=== PATIENT | female | born 1945 | race American Indian/Alaskan Native ===

== ENCOUNTER 2021-10-17 14:58 | Inpatient (IN) | payer MEDICARE ==
[2021-10-17] MEDS ORDERED: IPRATROPIUM 0.02% NEBU 2.5 ML IH ONE ×2 (15:51→17:30)
[2021-10-17] MEDS ORDERED: ALBUTEROL 2.5 MG/3 ML NEBU IH ONE ×2 (15:51→17:29)
--- NOTE | 2021-10-17 15:59 | Emergency Department Report ---
ED Shortness of Breath HPI - General Chief Complaint: Dyspnea/Respdistress Stated Complaint: DIFFICULTY BREATHING Time Seen by Provider: 10/17/21 15:44 Source: patient, EMS Mode of arrival: Stretcher Limitations: No Limitations - History of Present Illness Initial Comments: 76-year-old female with a history of end-stage renal disease currently on dialys is and chronic smoker with diagnosis of COPD who now presented with shortness of breath that been going on for couple of days with productive cough. Patient denies any fever or chills. No other modifying or associated factors reported. MD Complaint: shortness of breath - Related Data Allergies Allergy/AdvReac Type Severity Reaction Status Date / Time codeine AdvReac Unknown Verified 10/17/21 15:05 Penicillins AdvReac Unknown Verified 10/17/21 15:05 ED Review of Systems ROS: Stated complaint: DIFFICULTY BREATHING Other details as noted in HPI Comment: All other systems reviewed and negative Respiratory: cough, shortness of breath, SOB with exertion, wheezing ED Past Medical Hx - Past Medical History Previous Medical History?: No - Surgical History Past Surgical History?: No - Social History Smoking Status: Unknown if ever smoked Substance Use Type: None ED Physical Exam - General Limitations: No Limitations General appearance: alert, in distress (Due to shortness of breath) - Head Head exam: Present: normal inspection - Eye Eye exam: Present: normal appearance Pupils: Present: normal accommodation - ENT ENT exam: Present: normal exam, normal orophraynx, mucous membranes moist - Neck Neck exam: Present: normal inspection. Absent: tenderness - Respiratory Respiratory exam: Present: normal lung sounds bilaterally, respiratory distress, wheezes, accessory muscle use - Cardiovascular Cardiovascular Exam: Present: regular rate, normal rhythm, normal heart sounds - GI/Abdominal GI/Abdominal exam: Present: soft, distended, normal bowel sounds. Absent: te nderness - Extremities Exam Extremities exam: Present: normal inspection, normal capillary refill. Absent: tenderness, pedal edema, joint swelling - Back Exam Back exam: Absent: tenderness - Neurological Exam Neurological exam: Present: alert, oriented X3 - Psychiatric Psychiatric exam: Present: normal affect, normal mood ED Course Vital Signs 10/17/21 10/17/21 10/17/21 15:04 15:29 16:08 Pulse Rate 118 H Pulse Rate [ Anterior Bilateral Throughout] Respiratory Rate [Anterior Bilateral Throughout] Blood Pressure 202/160 [Left] O2 Sat by Pulse 96 100 94 Oximetry 10/17/21 16:14 Pulse Rate Pulse Rate [ 97 H Anterior Bilateral Throughout] Respiratory 20 Rate [Anterior Bilateral Throughout] Blood Pressure [Left] O2 Sat by Pulse Oximetry - Reevaluation(s) Reevaluation #1: 10/17/21 15:57 Here with shortness of breath with history of COPD currently smoking-- differential diagnosis could be but not limited to acute COPD exacerbation, myocardial infarction, pulmonary embolism, pneumonia, and any other systemic infection. So in order to rule out the above-mentioned we will go ahead and order routine dyspnea work-up that includes EKG, troponin, BNP, CBC, CMP, and urinalysis for any infectious process of electrolyte abnormality as a cause. We will also get a chest x-ray to rule out any pneumonia. In the meantime we will go ahead and give additional breathing DuoNeb treatment considering extensive wheezing and plus Levaquin for the likely COPD exacerbation. Reevaluation #2: 10/17/21 17:19 Noted with elevated troponin that is likely as result of chronic kidney injury with BUN at 80 and creatinine at 10.3--this patient probably needs dialysis. She gets dialyzed Monday and Monday so she is having one coming out tomorrow. Will consult with Nephrology for admission and dialysis. 10/17/21 17:30 Dr Alfaro consulted who accept pt for further evaluation and treatment - Consultations Consultation #1: 10/17/21 17:23 Dr Queen consulted who agreed to have patient admitted to the hospitalist and for likely dialysis in the AM-- ED Medical Decision Making - Lab Data Result diagrams: 10/17/21 15:57 10/17/21 15:57 - EKG Data -: EKG Interpreted by Me EKG shows normal: sinus rhythm Rate: normal - EKG Data 10/17/21 17:06 Noted with normal sinus rhythm at a rate of 95 bpm with suspected prolonged QT interval and this abnormal ECG Critical care attestation.: If time is entered above; I have spent that time in minutes in the direct care of this critically ill patient, excluding procedure time. ED Disposition Clinical Impression: COPD with acute exacerbation, ESRD (end stage renal disease) on dialysis Disposition: ADMITTED INPATIENT Is pt being admited?: Yes Does the pt Need Aspirin: No Condition: Stable Instructions: Chronic Obstructive Pulmonary Disease (ED)
[2021-10-17 16:14] LABS: Basophils % (Auto) 0.4 % (0.0-1.8); Eosinophils # (Auto) 0.1 K/mm3 (0.0-0.4); Eosinophils % (Auto) 1.5 % (0.0-4.3); Hematocrit 25.1 % (30.3-42.9); Hemoglobin 7.8 gm/dl (10.1-14.3); Lymphocytes # (Auto) 0.3 K/mm3 (1.2-5.4); Lymphocytes % (Auto) 4.7 % (13.4-35.0); Mean Corpuscular HGB Conc 31 % (30-34); Mean Corpuscular Volume 73 fl (79-97); Monocytes # (Auto) 0.4 K/mm3 (0.0-0.8); Monocytes % (Auto) 5.6 % (0.0-7.3); Platelet Count 137 K/mm3 (140-440); Red Blood Count 3.42 M/mm3 (3.65-5.03); Red Cell Distribution Width 19.6 % (13.2-15.2)
[2021-10-17 16:25] LABS: INR 1.1 (0.87-1.13)
[2021-10-17 16:26] LABS: Partial Thromboplastin Time 28.4 Sec. (24.2-36.6)
[2021-10-17 16:31] LABS: Albumin 3.8 g/dL (3.9-5); Calcium 9.4 mg/dL (8.4-10.2)
[2021-10-17 16:57] LABS: Chol/HDL Ratio 2.88 %
[2021-10-17 17:02] LABS: ABG Base Excess -2.3 mmol/L (-2.0-3.0); ABG HCO3 21.6 mmol/L (20.0-26.0); ABG Methemoglobin 0.5 % (0.0-1.5); ABG PCO2 32.8 mm Hg; ABG PH 7.436 pH Units (7.350-7.450); ABG PO2 78.3 mm Hg (80.0-90.0)
--- NOTE | 2021-10-17 17:55 | XRay Report ---
CHEST 1 VIEW INDICATION: sob. COMPARISON: None FINDINGS: SUPPORT DEVICES: None. HEART: Moderate cardiomegaly. LUNGS/PLEURA: Mild interstitial edema with small layering effusion on the right. A few tiny scattered pulmonary nodules are present. Correlate with any prior outside imaging and/or consider follow-up CT chest nonemergently. ADDITIONAL FINDINGS: None. IMPRESSION: 1. Lung findings as above. Signer Name: Josr Tamez MD Signed: 10/17/2021 5:51 PM Workstation Name: [id number]
[2021-10-17] MEDS ORDERED: ACETAMINOPHEN 325 MG TAB PO PRN (20:59)
[2021-10-17] MEDS ORDERED: METOCLOPRAMIDE 10 MG/2 ML INJ IV PRN ×2 (20:59→21:20)
[2021-10-17] MEDS ORDERED: MORPHINE 2 MG/1 ML INJ IV PRN (20:59)
[2021-10-17] MEDS ORDERED: oxyCODONE /ACETAMINOPHEN 5-325MG TAB PO PRN (20:59)
[2021-10-17] MEDS ORDERED: ONDANSETRON 4 MG/2 ML INJ IV PRN (20:59)
[2021-10-17] MEDS ORDERED: IPRATROPIUM/ALBUTEROL SULFATE 3 ML AMPUL.NEB IH PRN (21:13)
[2021-10-17] MEDS ORDERED: ALBUTEROL 2.5 MG/3 ML NEBU IH PRN (21:22)
--- NOTE | 2021-10-17 21:23 | History and Physical Report ---
History of Present Illness Date of examination: 10/17/21 Date of admission: 10/17/2021 Chief complaint: Increasing shortness of breath since a.m. History of present illness: 76-year-old female with a history of end-stage renal disease currently on dialysis and chronic smoker with diagnosis of COPD who now presented with shortness of breath that been going on for couple of days with productive cough. Patient denies any fever or chills. No other modifying or associated factors. Cough quality of mucoid sputum. No orthopnea. - Past Medical History end-stage renal disease on hemodialysis COPD Hypertension - Surgical History Vas-Cath - Social History Smokes about half a pack a day family history hypertension Review of Systems ROS: Stated complaint: DIFFICULTY BREATHING Other details as noted in HPI Comment: All other systems reviewed and negative Respiratory: cough, shortness of breath, SOB with exertion, wheezing Medications and Allergies Allergies Allergy/AdvReac Type Severity Reaction Status Date / Time codeine AdvReac Unknown Verified 10/17/21 15:05 Penicillins AdvReac Unknown Verified 10/17/21 15:05 Exam - Constitutional Vitals: Temp Pulse Resp BP Pulse Ox 100 H 16 152/86 100 10/17/21 18:55 10/17/21 18:55 10/17/21 18:55 10/17/21 18:55 General appearance: Present: mild distress, well-nourished - EENT Eyes: Present: PERRL ENT: hearing intact, clear oral mucosa - Neck Neck: Present: supple, normal ROM - Respiratory Respiratory effort: normal Respiratory: bilateral: diminished, rhonchi, wheezing - Cardiovascular Heart rate: 78 Rhythm: regular Heart Sounds: Present: S1 & S2. Absent: rub, click - Extremities Extremities: no ischemia, pulses intact, pulses symmetrical, No edema Peripheral Pulses: within normal limits - Abdominal General gastrointestinal: Present: soft, non-tender, non-distended, normal bowel sounds Female genitourinary: Present: normal - Rectal Rectal Exam: deferred - Integumentary Integumentary: Present: clear, warm, dry - Musculoskeletal Musculoskeletal: gait normal, strength equal bilaterally - Psychiatric Psychiatric: appropriate mood/affect, intact judgment & insight - Neurologic Neurologic: CNII-XII intact, moves all extremities - Allied Health Allied health notes reviewed: nursing, case management HEART Score - HEART Score Troponin: Troponin T 0.169 ng/mL (0.00-0.029) H* 10/17/21 15:57 Results - Labs CBC & Chem 7: 10/18/21 05:58 10/17/21 15:57 Labs: Laboratory Last Values WBC 7.0 K/mm3 (4.5-11.0) 10/17/21 15:57 RBC 3.42 M/mm3 (3.65-5.03) L 10/17/21 15:57 Hgb 7.8 gm/dl (10.1-14.3) L 10/17/21 15:57 Hct 25.1 % (30.3-42.9) L 10/17/21 15:57 MCV 73 fl (79-97) L 10/17/21 15:57 MCH 23 pg (28-32) L 10/17/21 15:57 MCHC 31 % (30-34) 10/17/21 15:57 RDW 19.6 % (13.2-15.2) H 10/17/21 15:57 Plt Count 137 K/mm3 (140-440) L 10/17/21 15:57 Lymph % (Auto) 4.7 % (13.4-35.0) L 10/17/21 15:57 [place] % (Auto) 5.6 % (0.0-7.3) 10/17/21 15:57 Eos % (Auto) 1.5 % (0.0-4.3) 10/17/21 15:57 Baso % (Auto) 0.4 % (0.0-1.8) 10/17/21 15:57 Lymph # (Auto) 0.3 K/mm3 (1.2-5.4) L 10/17/21 15:57 [place] # (Auto) 0.4 K/mm3 (0.0-0.8) 10/17/21 15:57 Eos # (Auto) 0.1 K/mm3 (0.0-0.4) 10/17/21 15:57 Baso # (Auto) 0.0 K/mm3 (0.0-0.1) 10/17/21 15:57 Seg Neutrophils % 87.8 % (40.0-70.0) H 10/17/21 15:57 Seg Neutrophils # 6.1 K/mm3 (1.8-7.7) 10/17/21 15:57 PT 15.5 Sec. (12.2-14.9) H 10/17/21 15:57 INR 1.10 (0.87-1.13) 10/17/21 15:57 APTT 28.4 Sec. (24.2-36.6) 10/17/21 15:57 ABG pH 7.436 pH Units (7.350-7.450) 10/17/21 Unknown ABG pCO2 32.8 mm Hg 10/17/21 Unknown ABG pO2 78.3 mm Hg (80.0-90.0) L 10/17/21 Unknown ABG HCO3 21.6 mmol/L (20.0-26.0) 10/17/21 Unknown ABG O2 Saturation 97.0 % (95.0-99.0) 10/17/21 Unknown ABG O2 Content 10.5 (0.0-44) 10/17/21 Unknown ABG Base Excess -2.3 mmol/L (-2.0-3.0) L 10/17/21 Unknown ABG Hemoglobin 7.8 gm/dl (12.0-16.0) L 10/17/21 Unknown ABG Carboxyhemoglobin 2.3 % (0.0-5.0) 10/17/21 Unknown ABG Methemoglobin 0.5 % (0.0-1.5) 10/17/21 Unknown Oxyhemoglobin 94.4 % (95.0-99.0) L 10/17/21 Unknown FiO2 40 % 10/17/21 Unknown Sodium 137 mmol/L (137-145) 10/17/21 15:57 Potassium 4.7 mmol/L (3.6-5.0) 10/17/21 15:57 Chloride 101.2 mmol/L (98-107) 10/17/21 15:57 Carbon Dioxide 21 mmol/L (22-30) L 10/17/21 15:57 Anion Gap 20 mmol/L 10/17/21 15:57 BUN 80 mg/dL (7-17) H 10/17/21 15:57 Creatinine 10.3 mg/dL (0.6-1.2) H 10/17/21 15:57 Estimated GFR 4 ml/min 10/17/21 15:57 BUN/Creatinine Ratio 8 % 10/17/21 15:57 Glucose 106 mg/dL (65-100) H 10/17/21 15:57 Lactic Acid 1.60 mmol/L (0.7-2.0) 10/17/21 15:57 Calcium 9.4 mg/dL (8.4-10.2) 10/17/21 15:57 Total Bilirubin 0.40 mg/dL (0.1-1.2) 10/17/21 15:57 AST 21 units/L (5-40) 10/17/21 15:57 ALT 16 units/L (7-56) 10/17/21 15:57 Alkaline Phosphatase 68 units/L (35-129) 10/17/21 15:57 Troponin T 0.169 ng/mL (0.00-0.029) H* 10/17/21 15:57 Total Protein 6.8 g/dL (6.3-8.2) 10/17/21 15:57 Albumin 3.8 g/dL (3.9-5) L 10/17/21 15:57 Albumin/Globulin Ratio 1.3 % 10/17/21 15:57 Triglycerides 42 mg/dL (2-149) 10/17/21 15:57 Cholesterol 156 mg/dL (50-199) 10/17/21 15:57 LDL Cholesterol Direct 96 mg/dL (50-130) 10/17/21 15:57 HDL Cholesterol 54 mg/dL (40-59) 10/17/21 15:57 Cholesterol/HDL Ratio 2.88 % 10/17/21 15:57 Short CBC 10/17/21 Range/Units 15:57 WBC 7.0 (4.5-11.0) K/mm3 Hgb 7.8 L (10.1-14.3) gm/dl Hct 25.1 L (30.3-42.9) % Plt Count 137 L (140-440) K/mm3 BMP 10/17/21 15:57 Sodium 137 Potassium 4.7 Chloride 101.2 Carbon Dioxide 21 L BUN 80 H Creatinine 10.3 H Glucose 106 H Calcium 9.4 Cardiac Enzymes 10/17/21 10/17/21 Range/Units 15:57 20:53 Troponin T 0.169 H* 0.178 H* (0.00-0.029) ng/mL Liver Function 10/17/21 Range/Units 15:57 Total Bilirubin 0.40 (0.1-1.2) mg/dL AST 21 (5-40) units/L ALT 16 (7-56) units/L Alkaline Phosphatase 68 (35-129) units/L Albumin 3.8 L (3.9-5) g/dL - Imaging and Cardiology Imaging and Cardiology: Chest x-ray Mild interstitial edema with small layering effusion on the right. Nodules are present Correlate with prior outside and consider follow-up CT chest none emergently. Assessment and Plan Advance Directives: Yes (Full code) VTE prophylaxis?: Chemical Plan of care discussed with patient/family: Yes - Patient Problems (1) Acute respiratory failure with hypoxia Current Visit: Yes Status: Acute Plan to address problem: Patient is hypoxic initially with oxygen saturations around 86 Duo nebs [id number] and oxygenation and IV antibiotics BiPAP as necessary Intubation if necessary (2) COPD with acute exacerbation Current Visit: Yes Status: Acute Plan to address problem: Patient initiated on duo nebs [id number] and as needed and IV Levaquin and IV Decadron (3) Person under investigation for COVID-19 Current Visit: Yes Status: Acute Plan to address problem: COVID test requested for a.m. (4) ESRD (end stage renal disease) on dialysis Current Visit: Yes Status: Chronic Plan to address problem: Continue hemodialysis per schedule (5) Hypertension Current Visit: Yes Status: Chronic Qualifiers: Hypertension type: primary hypertension Qualified Code(s): I10 - Essential (primary) hypertension Plan to address problem: Continue antihypertensives and adjust medications (6) Anemia Current Visit: Yes Status: Chronic Plan to address problem: Anemia of chronic kidney disease Epogen per nephrology (7) DVT prophylaxis Current Visit: Yes Status: Acute Plan to address problem: On heparin and GI prophylaxis (8) Advance care planning Current Visit: Yes Status: Acute Plan to address problem: Disease education conducted, care plan discussed, diagnosis discussed, prognosis discussed. Patient is full code. Patient acknowledges understanding and agreement with care plan. +30 minutes.
[2021-10-17] MEDS: dexAMETHasone 4 MG/ML VIAL IV SCH (22:00)
[2021-10-18 06:38] LABS: Basophils % (Auto) 0.3 % (0.0-1.8); Hematocrit 22.1 % (30.3-42.9); Hemoglobin 6.9 gm/dl (10.1-14.3); Lymphocytes # (Auto) 0.2 K/mm3 (1.2-5.4); Lymphocytes % (Auto) 5.4 % (13.4-35.0); Mean Corpuscular HGB Conc 31 % (30-34); Mean Corpuscular Volume 73 fl (79-97); Monocytes # (Auto) 0.1 K/mm3 (0.0-0.8); Monocytes % (Auto) 4.8 % (0.0-7.3); Platelet Count 124 K/mm3 (140-440); Red Blood Count 3.04 M/mm3 (3.65-5.03); Red Cell Distribution Width 19.1 % (13.2-15.2)
[2021-10-18 06:59] LABS: Albumin 3.7 g/dL (3.9-5)
[2021-10-18] MEDS ORDERED: SODIUM CHLORIDE 0.9% 500 ML 500 ML IV NR (08:07)
[2021-10-18] MEDS: IPRATROPIUM/ALBUTEROL SULFATE 3 ML AMPUL.NEB IH SCH ×4 (08:46→20:13)
[2021-10-18] MEDS ORDERED: SODIUM CHLORIDE 0.9% 100 ML IV PRN (10:00)
[2021-10-18] MEDS ORDERED: EPOETIN ALFA-EPBX 20,000 UNIT/1 ML VIAL IV PRN (10:00)
--- NOTE | 2021-10-18 10:38 | Consultation ---
History of Present Illness - Reason for Consult Consult date: 10/18/21 end stage renal disease Requesting physician: ANIBAL VELASCO - History of Present Illness 76-year-old lady with a history of end-stage renal disease on hemodialysis on a Monday, Monday and Monday schedule. Patient went for her usual dialysis on Monday but did not complete the treatment as she says her AV access was poorly functioning. It clotted off. She was meant to go get the access looked at this week. She presents now on account of cough and shortness of breath of several days duration. Shortness of breath kept worsening and so she came in for evaluation. Patient also has a history of COPD. She admits that the cough is now productive of yellowish sputum. There is no fever or chills Past History Past Medical History: COPD, ESRD, hypertension Past Surgical History: Other (permacath, AV fistula placement) Social history: smoking. denies: prescription drug abuse, IV drug use Family history: no significant family history Medications and Allergies Allergies Allergy/AdvReac Type Severity Reaction Status Date / Time codeine AdvReac Unknown Verified 10/17/21 15:05 Penicillins AdvReac Unknown Verified 10/17/21 15:05 Active Meds: Active Medications Acetaminophen (Acetaminophen 325 Mg Tab) 650 mg PO Q4H PRN PRN Reason: Pain MILD(1-3)/Fever >100.5/ROJAS Last Admin: 10/18/21 02:45 Dose: 650 mg Albuterol (Albuterol 2.5 Mg/3 Ml Nebu) 2.5 mg IH Q3HRT PRN PRN Reason: Wheezing Albuterol/Ipratropium (Ipratropium/Albuterol Sulfate 3 Ml Ampul.Neb) 1 ampul IH QIDRT CECILIA Last Admin: 10/18/21 08:46 Dose: Not Given Dexamethasone (Dexamethasone 4 Mg/Ml Vial) 8 mg IV Q24H CECILIA Last Admin: 10/17/21 22:00 Dose: 8 mg Epoetin Ravinder-epbx (Epoetin Ravinder-Epbx 20,000 Unit/1 Ml Vial) 20,000 unit IV ELLY PRN PRN Reason: hemodialysis Levofloxacin/Dextrose (Levaquin 500mg/100ml) 500 mg in 100 mls @ 100 mls/hr IV Q48H CECILIA; Protocol Sodium Chloride (Nacl 0.9% 500 Ml) 500 mls @ 0 mls/hr IV ONCE NR Stop: 10/19/21 08:06 Sodium Chloride (Nacl 0.9%) 100 mls @ 999 mls/hr IV ELLY PRN PRN Reason: Hypotension Melatonin (Melatonin 5 Mg Tab) 10 mg PO QHS PRN PRN Reason: Sleep Metoclopramide HCl (Metoclopramide 10 Mg/2 Ml Inj) 2.5 mg IV Q6H PRN PRN Reason: Nausea And Vomiting Morphine Sulfate (Morphine 2 Mg/1 Ml Inj) 2 mg IV Q4H PRN PRN Reason: Pain, Moderate (4-6) Nicotine (Nicotine 21 Mg/24 Hr Patch) 21 mg TD QDAY CECILIA Ondansetron HCl (Ondansetron 4 Mg/2 Ml Inj) 4 mg IV Q8H PRN PRN Reason: Nausea And Vomiting Oxycodone/Acetaminophen (Oxycodone /Acetaminophen 5-325mg Tab) 1 tab PO Q6H PRN PRN Reason: Pain, Moderate (4-6) Sodium Chloride (Sodium Chloride 0.9% 10 Ml Flush Syringe) 10 ml IV BID CECILIA Last Admin: 10/17/21 22:00 Dose: 10 ml Sodium Chloride (Sodium Chloride 0.9% 10 Ml Flush Syringe) 10 ml IV PRN PRN PRN Reason: LINE FLUSH Review of Systems All systems: negative (As noted in history of present illness. Patient is a poor historian and was crying during the evaluation and really not answering most of the questions on review of systems) Exam - Vital Signs Vital signs: Vital Signs Pulse BP Pulse Ox 118 H 202/160 96 10/17/21 15:04 10/17/21 15:04 10/17/21 15:04 - Physical Exam Narrative exam: Elderly -[place] female lying in bed in no acute distress HEENT: NCAT, Neck: Supple, no venous distention CVS: S1S2 RRR with no murmur, rub or gallop Chest: Clear to auscultation Abdomen: Protuberant, soft, nontender, no organomegaly, bowel sounds are present Extremities: No edema Genitourinary deferred Skin warm and dry Neuro: Awake, alert no focal deficits Results - Lab Results 10/18/21 05:58 10/18/21 05:58 Most recent lab results ABG pH 7.436 pH Units (7.350-7.450) 10/17/21 Unknown ABG pCO2 32.8 mm Hg 10/17/21 Unknown ABG pO2 78.3 mm Hg (80.0-90.0) L 10/17/21 Unknown ABG HCO3 21.6 mmol/L (20.0-26.0) 10/17/21 Unknown ABG O2 Saturation 97.0 % (95.0-99.0) 10/17/21 Unknown Calcium 10.0 mg/dL (8.4-10.2) 10/18/21 05:58 Assessment and Plan - Patient Problems (1) COPD with acute exacerbation Current Visit: Yes Status: Acute (2) Acute respiratory failure with hypoxia Current Visit: Yes Status: Acute (3) Anemia in ESRD (end-stage renal disease) Current Visit: Yes Status: Acute Plan to address problem: Give erythropoietin on dialysis. Transfuse for hemoglobin less than 7 g/dL. (4) Hypertensive chronic kidney disease with stage 5 chronic kidney disease or end stage renal disease Current Visit: Yes Status: Acute Plan to address problem: Follow-up blood pressure on current medications. (5) ESRD (end stage renal disease) on dialysis Current Visit: Yes Status: Chronic Plan to address problem: Hemodialysis on a Monday, Monday and Monday schedule.
[2021-10-18] MEDS ORDERED: diphenhydrAMINE 50 MG/ML VIAL IV PRN (11:00)
--- NOTE | 2021-10-18 11:25 | Progress Note ---
Assessment and Plan Assessment and plan: #Acute respiratory failure with hypoxia -At baseline patient requires no oxygen at home -Continue supplemental O2, will wean as tolerated -Maintain oxygen saturation greater 88% -continue duo nebs, steriods and abx #COPD with acute exacerbation -continue duonebs, Levaquin -Continue pulse oximetry -Patient will need outpatient pulmonology follow-up #COVID-19 PUI -COVID PCR collected and pending #ESRD (end stage renal disease) on dialysis -Patient on Monday outpatient hemodialysis schedule -Dialysis scheduled for today -Nephrology consulted, assistance appreciated -Avoid nephrotoxins and renally dose medication #Hypertension -Currently not on any antihypertensives -We will resume once medication reconciliation is complete #Acute on chronic normocytic anemia -baseline Hgb ; Hgb 6.9 this morning -will transfuse 1 unit pRBCs with dialysis -likely secondary to ESRD -continue Epogen with HD #Tobacco dependence #Smoking cessation counseling -patient smokes 1.5 ppd, patient has poor insight and is not interested in cessation at this time -nicotine patch -Smoking cessation counseling, supportive care, behavior change counseling, +15 minutes. #Advance care planning -Disease education conducted, care plan discussed, diagnosis discussed, prognosis discussed. Patient is full code. Patient acknowledges understanding and agreement with care plan. +30 minutes. History Interval history: No acute events overnight. Patient asking for any "juan and lemon tea". 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 She smokes about 2 packs of cigarettes per day and is not interested in quitting. She has had a cough productive of sputum. She endorses improvement since admission. Hospitalist Physical - Physical exam Narrative exam: GENERAL: Well-developed well-nourished. In no acute distress. HEENT: Nasal cannula 2 L/min NECK: Supple. CHEST/LUNGS: Expiratory wheezes bilaterally. HEART/CARDIOVASCULAR: RRR. No murmur, rubs or gallops appreciated. ABDOMEN: +BS. NT/ND. SKIN: No rashes noted. NEURO: No focal motor deficit. Follows all commands. MUSCULOSKELETAL: No joint effusion EXTREMITIES: Left upper extremity AV fistula with thrill. No cyanosis, clubbing or edema. PSYCH: Cooperative. - Constitutional Vitals: Temp Pulse Resp BP Pulse Ox 98.6 F 91 H 20 168/95 100 10/18/21 02:08 10/18/21 02:08 10/18/21 02:08 10/18/21 02:08 10/18/21 02:08 General appearance: Present: mild distress, well-nourished HEART Score - HEART Score Troponin: Troponin T 0.178 ng/mL (0.00-0.029) H* 10/17/21 20:53 Results - Labs CBC & Chem 7: 10/18/21 05:58 10/18/21 05:58 Labs: Laboratory Last Values WBC 3.1 K/mm3 (4.5-11.0) L 10/18/21 05:58 RBC 3.04 M/mm3 (3.65-5.03) L 10/18/21 05:58 Hgb 6.9 gm/dl (10.1-14.3) L 10/18/21 05:58 Hct 22.1 % (30.3-42.9) L 10/18/21 05:58 MCV 73 fl (79-97) L 10/18/21 05:58 MCH 23 pg (28-32) L 10/18/21 05:58 MCHC 31 % (30-34) 10/18/21 05:58 RDW 19.1 % (13.2-15.2) H 10/18/21 05:58 Plt Count 124 K/mm3 (140-440) L 10/18/21 05:58 Lymph % (Auto) 5.4 % (13.4-35.0) L 10/18/21 05:58 [place] % (Auto) 4.8 % (0.0-7.3) 10/18/21 05:58 Eos % (Auto) 0.0 % (0.0-4.3) 10/18/21 05:58 Baso % (Auto) 0.3 % (0.0-1.8) 10/18/21 05:58 Lymph # (Auto) 0.2 K/mm3 (1.2-5.4) L 10/18/21 05:58 [place] # (Auto) 0.1 K/mm3 (0.0-0.8) 10/18/21 05:58 Eos # (Auto) 0.0 K/mm3 (0.0-0.4) 10/18/21 05:58 Baso # (Auto) 0.0 K/mm3 (0.0-0.1) 10/18/21 05:58 Seg Neutrophils % 89.5 % (40.0-70.0) H 10/18/21 05:58 Seg Neutrophils # 2.7 K/mm3 (1.8-7.7) 10/18/21 05:58 PT 15.5 Sec. (12.2-14.9) H 10/17/21 15:57 INR 1.10 (0.87-1.13) 10/17/21 15:57 APTT 28.4 Sec. (24.2-36.6) 10/17/21 15:57 ABG pH 7.436 pH Units (7.350-7.450) 10/17/21 Unknown ABG pCO2 32.8 mm Hg 10/17/21 Unknown ABG pO2 78.3 mm Hg (80.0-90.0) L 10/17/21 Unknown ABG HCO3 21.6 mmol/L (20.0-26.0) 10/17/21 Unknown ABG O2 Saturation 97.0 % (95.0-99.0) 10/17/21 Unknown ABG O2 Content 10.5 (0.0-44) 10/17/21 Unknown ABG Base Excess -2.3 mmol/L (-2.0-3.0) L 10/17/21 Unknown ABG Hemoglobin 7.8 gm/dl (12.0-16.0) L 10/17/21 Unknown ABG Carboxyhemoglobin 2.3 % (0.0-5.0) 10/17/21 Unknown ABG Methemoglobin 0.5 % (0.0-1.5) 10/17/21 Unknown Oxyhemoglobin 94.4 % (95.0-99.0) L 10/17/21 Unknown FiO2 40 % 10/17/21 Unknown Sodium 139 mmol/L (137-145) 10/18/21 05:58 Potassium 4.6 mmol/L (3.6-5.0) 10/18/21 05:58 Chloride 98.4 mmol/L (98-107) 10/18/21 05:58 Carbon Dioxide 20 mmol/L (22-30) L 10/18/21 05:58 Anion Gap 25 mmol/L 10/18/21 05:58 BUN 92 mg/dL (7-17) H 10/18/21 05:58 Creatinine 10.4 mg/dL (0.6-1.2) H 10/18/21 05:58 Estimated GFR 4 ml/min 10/18/21 05:58 BUN/Creatinine Ratio 9 % 10/18/21 05:58 Glucose 139 mg/dL (65-100) H 10/18/21 05:58 Lactic Acid 1.60 mmol/L (0.7-2.0) 10/17/21 15:57 Calcium 10.0 mg/dL (8.4-10.2) 10/18/21 05:58 Total Bilirubin 0.30 mg/dL (0.1-1.2) 10/18/21 05:58 AST 18 units/L (5-40) 10/18/21 05:58 ALT 16 units/L (7-56) 10/18/21 05:58 Alkaline Phosphatase 68 units/L (35-129) 10/18/21 05:58 Troponin T 0.178 ng/mL (0.00-0.029) H* 10/17/21 20:53 Total Protein 6.5 g/dL (6.3-8.2) 10/18/21 05:58 Albumin 3.7 g/dL (3.9-5) L 10/18/21 05:58 Albumin/Globulin Ratio 1.3 % 10/18/21 05:58 Triglycerides 42 mg/dL (2-149) 10/17/21 15:57 Cholesterol 156 mg/dL (50-199) 10/17/21 15:57 LDL Cholesterol Direct 96 mg/dL (50-130) 10/17/21 15:57 HDL Cholesterol 54 mg/dL (40-59) 10/17/21 15:57 Cholesterol/HDL Ratio 2.88 % 10/17/21 15:57 Blood Type A POSITIVE 10/18/21 08:53 Antibody Screen Negative 10/18/21 08:53 Crossmatch See Detail 10/18/21 08:53 Hunter/IV: Voiding Method Diaper Active Medications - Current Medications Current Medications: Generic Name Dose Route Start Last Admin Trade Name Freq PRN Reason Stop Dose Admin Acetaminophen 650 mg 10/17/21 20:59 10/18/21 02:45 Acetaminophen 325 Mg Tab PO 650 mg Q4H PRN Administration Pain MILD(1-3)/Fever >100.5/ROJAS Albuterol 2.5 mg 10/17/21 21:22 Albuterol 2.5 Mg/3 Ml Nebu IH Q3HRT PRN Wheezing Albuterol/Ipratropium 1 ampul 10/18/21 08:00 10/18/21 08:46 Ipratropium/Albuterol Sulfate 3 Ml Ampul.Neb IH Not Given QIDRT CECILAI Dexamethasone 8 mg 10/17/21 22:00 10/17/21 22:00 Dexamethasone 4 Mg/Ml Vial IV 8 mg Q24H CECILIA Administration Diphenhydramine HCl 25 mg 10/18/21 11:00 Diphenhydramine 50 Mg/Ml Vial IV Q6H PRN Itching Epoetin Ravinder-epbx 20,000 unit 10/18/21 10:00 Epoetin Ravinder-Epbx 20,000 Unit/1 Ml Vial IV ELLY PRN hemodialysis Levofloxacin/Dextrose 500 mg in 100 mls @ 100 mls/hr 10/19/21 10:00 Levaquin 500mg/100ml IV Q48H [facility] Protocol Sodium Chloride 500 mls @ 0 mls/hr 10/18/21 08:07 Nacl 0.9% 500 Ml IV 10/19/21 08:06 ONCE NR As Directed Sodium Chloride 100 mls @ 999 mls/hr 10/18/21 10:00 Nacl 0.9% IV ELLY PRN Hypotension Melatonin 10 mg 10/18/21 22:00 Melatonin 5 Mg Tab PO QHS PRN Sleep Metoclopramide HCl 2.5 mg 10/17/21 21:20 Metoclopramide 10 Mg/2 Ml Inj IV Q6H PRN Nausea And Vomiting Morphine Sulfate 2 mg 10/17/21 20:59 Morphine 2 Mg/1 Ml Inj IV Q4H PRN Pain, Moderate (4-6) Nicotine 21 mg 10/18/21 10:00 Nicotine 21 Mg/24 Hr Patch TD QDAY [facility] Ondansetron HCl 4 mg 10/17/21 20:59 Ondansetron 4 Mg/2 Ml Inj IV Q8H PRN Nausea And Vomiting Oxycodone/Acetaminophen 1 tab 10/17/21 20:59 Oxycodone /Acetaminophen 5-325mg Tab PO Q6H PRN Pain, Moderate (4-6) Sodium Chloride 10 ml 10/17/21 22:00 10/17/21 22:00 Sodium Chloride 0.9% 10 Ml Flush Syringe IV 10 ml BID CECILIA Administration Sodium Chloride 10 ml 10/17/21 20:59 Sodium Chloride 0.9% 10 Ml Flush Syringe IV PRN PRN LINE FLUSH
[2021-10-18] MEDS ORDERED: SODIUM CHLORIDE 0.9% 250ML 250 ML ONE (11:38)
[2021-10-18] MEDS: NICOTINE 21 MG/24 HR PATCH TD SCH (15:08)
[2021-10-18 15:21] LABS: Hepatitis B Surface Antigen Non-Reactive (Negative); Hepatitis C Virus Antibody Non-Reactive (NonReactive)
[2021-10-18] MEDS ORDERED: MELATONIN 5 MG TAB PO PRN (22:00)
[2021-10-18] MEDS: dexAMETHasone 4 MG/ML VIAL IV SCH (22:02)
[2021-10-18 23:16] LABS: Hematocrit 23.6 % (30.3-42.9); Hemoglobin 7.7 gm/dl (10.1-14.3)
[2021-10-19 06:30] VITALS: BP 164/92
[2021-10-19 07:13] LABS: Calcium 9.3 mg/dL (8.4-10.2)
[2021-10-19] MEDS: IPRATROPIUM/ALBUTEROL SULFATE 3 ML AMPUL.NEB IH SCH ×2 (07:50→11:06)
--- NOTE | 2021-10-19 08:35 | Progress Note ---
Assessment and Plan - Patient Problems (1) COPD with acute exacerbation Status: Acute Plan to address problem: Continue steroids and bronchodilator nebulizer treatments. Discharge planning by primary attending. (2) Acute respiratory failure with hypoxia Status: Acute Plan to address problem: Improved. (3) Anemia in ESRD (end-stage renal disease) Status: Acute Plan to address problem: Give erythropoietin on dialysis. Transfuse for hemoglobin less than 7 g/dL. (4) Hypertensive chronic kidney disease with stage 5 chronic kidney disease or end stage renal disease Status: Acute Plan to address problem: Follow-up blood pressure on current medications. (5) ESRD (end stage renal disease) on dialysis Status: Chronic Plan to address problem: Hemodialysis on a Monday, Monday and Monday schedule. Next hemodialysis tomorrow which could be done as an outpatient if patient is discharged. Subjective Date of service: 10/19/21 Principal diagnosis: End-stage renal disease Interval history: Patient seen lying in bed. She feels much better. Denies any chest pain or shortness of breath. Wants to go home Objective - Exam Narrative Exam: Elderly -[place] female lying in bed in no acute distress HEENT: NCAT, Neck: Supple, no venous distention CVS: S1S2 RRR with no murmur, rub or gallop Chest: Clear to auscultation Abdomen: Protuberant, soft, nontender, no organomegaly, bowel sounds are present Extremities: No edema Genitourinary deferred Skin warm and dry Neuro: Awake, alert no focal deficits - Vital Signs Vital signs: Vital Signs - 12hr 10/18/21 10/19/21 10/19/21 21:38 02:00 05:52 Temperature 98.0 F 98.9 F Pulse Rate 98 H 96 H 95 H Pulse Rate [ Anterior Bilateral Throughout] Respiratory 18 20 Rate Respiratory Rate [Anterior Bilateral Throughout] Blood Pressure 146/78 164/92 O2 Sat by Pulse 100 98 100 Oximetry 10/19/21 10/19/21 08:00 08:14 Temperature Pulse Rate Pulse Rate [ 86 Anterior Bilateral Throughout] Respiratory Rate Respiratory 18 Rate [Anterior Bilateral Throughout] Blood Pressure O2 Sat by Pulse 100 Oximetry - Lab 10/18/21 22:44 10/19/21 06:32 Most recent lab results ABG pH 7.436 pH Units (7.350-7.450) 10/17/21 Unknown ABG pCO2 32.8 mm Hg 10/17/21 Unknown ABG pO2 78.3 mm Hg (80.0-90.0) L 10/17/21 Unknown ABG HCO3 21.6 mmol/L (20.0-26.0) 10/17/21 Unknown ABG O2 Saturation 97.0 % (95.0-99.0) 10/17/21 Unknown Calcium 9.3 mg/dL (8.4-10.2) 10/19/21 06:32 Medications & Allergies - Medications Allergies/Adverse Reactions: Allergies codeine Adverse Reaction (Verified 10/17/21 15:05) Unknown Penicillins Adverse Reaction (Verified 10/17/21 15:05) Unknown Home Medications: Home Medications Medication Instructions Recorded Confirmed Last Taken Type ALPRAZolam [Xanax TAB] 0.5 mg PO DAILY PRN 10/18/21 10/18/21 Unknown History Benzonatate [Tessalon Perles] 100 mg PO Q8HR 10/18/21 10/18/21 Unknown History Citalopram Hydrobromide 10 mg PO DAILY 10/18/21 10/18/21 Unknown History [Citalopram HBr] Dorzolamide HCl/Timolol Maleat 1 drop OS HS 10/18/21 10/18/21 Unknown History [Dorzolamide-Timolol Eye Drops] Latanoprost 0.005% 1 drop OP QPM 10/18/21 10/18/21 Unknown History Pantoprazole Sodium 1 tab PO DAILY 10/18/21 10/18/21 Unknown History megestroL [Megestrol] 20 mg PO DAILY 10/18/21 10/18/21 Unknown History Albuterol Sulfate [Proventil Hfa] 6.7 gm IH Q4H PRN 30 Days #2 each 10/19/21 Unknown Rx Budesonide/Formoterol Fumarate 10.2 gm IH BID 30 Days #2 each 10/19/21 Unknown Rx [Symbicort 160-4.5 Mcg Inhaler] Prednisone [predniSONE 10 mg 10 mg PO .TAPER 6 Days #1 each 10/19/21 Unknown Rx (6-Day Pack, 21 Tabs)] carvediloL [Coreg] 25 mg PO BID 30 Days #60 tablet 10/19/21 Unknown Rx levoFLOXacin [Levaquin TAB] 500 mg PO QDAY 3 Days #3 tablet 10/19/21 Unknown Rx Active Medications: Generic Name Dose Route Start Last Admin Trade Name Freq PRN Reason Stop Dose Admin Acetaminophen 650 mg 10/17/21 20:59 10/18/21 02:45 Acetaminophen 325 Mg Tab PO 650 mg Q4H PRN Administration Pain MILD(1-3)/Fever >100.5/ROJAS Albuterol 2.5 mg 10/17/21 21:22 Albuterol 2.5 Mg/3 Ml Nebu IH Q3HRT PRN Wheezing Albuterol/Ipratropium 1 ampul 10/18/21 08:00 10/19/21 07:50 Ipratropium/Albuterol Sulfate 3 Ml Ampul.Neb IH 1 ampul QIDRT CECILIA Administration Citalopram Hydrobromide 10 mg 10/19/21 10:00 Citalopram 10 Mg Tab PO DAILY CECILIA Dexamethasone 8 mg 10/17/21 22:00 10/18/21 22:02 Dexamethasone 4 Mg/Ml Vial IV 8 mg Q24H CECILIA Administration Diphenhydramine HCl 25 mg 10/18/21 11:00 Diphenhydramine 50 Mg/Ml Vial IV Q6H PRN Itching Epoetin Ravinder-epbx 20,000 unit 10/18/21 10:00 Epoetin Ravinder-Epbx 20,000 Unit/1 Ml Vial IV ELLY PRN hemodialysis Levofloxacin/Dextrose 500 mg in 100 mls @ 100 mls/hr 10/19/21 10:00 Levaquin 500mg/100ml IV Q48H [facility] Protocol Sodium Chloride 100 mls @ 999 mls/hr 10/18/21 10:00 Nacl 0.9% IV ELLY PRN Hypotension Megestrol Acetate 20 mg 10/19/21 10:00 Megestrol 20 Mg Tab PO DAILY CECILIA Melatonin 10 mg 10/18/21 22:00 10/18/21 22:00 Melatonin 5 Mg Tab PO 10 mg QHS PRN Administration Sleep Metoclopramide HCl 2.5 mg 10/17/21 21:20 Metoclopramide 10 Mg/2 Ml Inj IV Q6H PRN Nausea And Vomiting Morphine Sulfate 2 mg 10/17/21 20:59 Morphine 2 Mg/1 Ml Inj IV Q4H PRN Pain, Moderate (4-6) Nicotine 21 mg 10/18/21 10:00 10/18/21 15:08 Nicotine 21 Mg/24 Hr Patch TD 21 mg QDAY CECILIA Administration Ondansetron HCl 4 mg 10/17/21 20:59 Ondansetron 4 Mg/2 Ml Inj IV Q8H PRN Nausea And Vomiting Oxycodone/Acetaminophen 1 tab 10/17/21 20:59 Oxycodone /Acetaminophen 5-325mg Tab PO Q6H PRN Pain, Moderate (4-6) Pantoprazole Sodium 40 mg 10/19/21 09:00 Pantoprazole 40 Mg Tab PO QDAC CECILIA Sodium Chloride 10 ml 10/17/21 22:00 10/18/21 22:02 Sodium Chloride 0.9% 10 Ml Flush Syringe IV 10 ml BID CECILIA Administration Sodium Chloride 10 ml 10/17/21 20:59 Sodium Chloride 0.9% 10 Ml Flush Syringe IV PRN PRN LINE FLUSH
[2021-10-19] MEDS ORDERED: PANTOPRAZOLE 40 MG TAB PO SCH (09:00)
[2021-10-19] MEDS: NICOTINE 21 MG/24 HR PATCH TD SCH (09:36)
[2021-10-19] MEDS ORDERED: CITALOPRAM 10 MG TAB PO SCH (10:00)
[2021-10-19] MEDS ORDERED: MEGESTROL 20 MG TAB PO SCH (10:00)
--- NOTE | 2021-10-19 11:18 | Discharge Summary ---
Providers - Providers Date of Admission: 10/17/21 20:59 Date of discharge: 10/19/21 Attending physician: ETIENNE ARGUETA MD 10/17/21 20:59 Consult to Physician [CONS] Routine Comment: Consulting Provider: DEAN PRIETO Physician Instructions: Reason For Exam: ESRD on HD Primary care physician: [employer] Hospitalization Reason for admission: COPD exacerbation Condition: Stable Hospital course: 76-year-old female with history of ESRD on HD, tobacco dependence and COPD who presented with shortness of breath and productive cough. She was admitted for acute COPD exacerbation. Nephrology was consulted for inpatient hemodialysis. Her hemoglobin was found to be 6.9 and she was transfused 1 unit. Her hemoglobin improved to 7.7. Patient was weaned to room air and no longer had any symptoms. She was discharged home with refills of her home medications. Disposition: 01 HOME / SELF CARE / HOMELESS Final Discharge Diagnosis (Prints w/discharge instructions): Acute hypoxic respiratory failure. COPD with acute exacerbation. ESRD requiring HD. Hypertension. Acute on chronic normocytic anemia. Tobacco dependence Time spent for discharge: 40 minutes Core Measure Documentation - Palliative Care Palliative Care/ Comfort Measures: Not Applicable - Core Measures Any of the following diagnoses?: none Exam - Physical Exam Narrative exam: GENERAL: Well-developed well-nourished. In no acute distress. HEENT: Normocephalic, atraumatic. CHEST/LUNGS: Improved expiratory wheezes bilaterally. HEART/CARDIOVASCULAR: RRR. No murmur, rubs or gallops appreciated. ABDOMEN: +BS. NT/ND. NEURO: No focal motor deficit. Follows all commands. MUSCULOSKELETAL: No joint effusion EXTREMITIES: Left upper extremity AV fistula with thrill. No cyanosis, clubbing or edema. PSYCH: Cooperative. - Constitutional Vitals: Temp Pulse Resp BP Pulse Ox 98.9 F 89 18 164/92 100 10/19/21 05:52 10/19/21 11:07 10/19/21 11:07 10/19/21 05:52 10/19/21 08:14 Plan Care Plan Goals: Please make an appointment to follow-up with your primary care provider. Make sure to take all medications as we have prescribed to you. It is important that you keep a list of your updated medications with you at all times to ensure that you receive the best medical care no matter where you are. Please consider quitting or cutting back the amount you smoke. Quitting will make your COPD better. Follow up with: PRIMARY CARE, [Primary Care Provider] - 7 Days Prescriptions: carvediloL [Coreg] 25 mg PO BID 30 Days #60 tablet levoFLOXacin [Levaquin TAB] 500 mg PO QDAY 3 Days #3 tablet Prednisone [predniSONE 10 mg (6-Day Pack, 21 Tabs)] 10 mg PO .TAPER 6 Days #1 each Albuterol Sulfate [Proventil Hfa] 6.7 gm IH Q4H PRN 30 Days #2 each PRN Reason: Shortness Of Breath Budesonide/Formoterol Fumarate [Symbicort 160-4.5 Mcg Inhaler] 10.2 gm IH BID 30 Days #2 each
--- NOTE | 2021-10-21 11:42 | Electrocardiograph Report ---
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 Prolonged QT interval No previous ECG available for comparison Electronically Signed On 10-21-2021 11:42:12 EDT by Alonso Lynch
== END 2021-10-19 12:00 | disposition home or self-care (01) | DRG 189 ==
LOC: ED 14:58 → 4A 20:59 → 3A 21:48
PROVIDERS: ADMIT Internal Medicine; ATTEND Student in an Organized Health Care Education/Training Program
PROC: 4A033R1 Measurement of Arterial Saturation, Peripheral, Percutaneous Approach (ICD-10-PCS; principal; 2021-10-17)
PROC: 5A1D70Z Performance of Urinary Filtration, Intermittent, Less than 6 Hours Per Day (ICD-10-PCS; 2021-10-18)
PROC: 30233N1 Transfusion of Nonautologous Red Blood Cells into Peripheral Vein, Percutaneous Approach (ICD-10-PCS; 2021-10-18)
DX: J96.01 Acute respiratory failure with hypoxia (principal); N18.6 End stage renal disease; J44.1 Chronic obstructive pulmonary disease with (acute) exacerbation; I12.0 Hypertensive chronic kidney disease with stage 5 chronic kidney disease or end stage renal disease; D63.1 Anemia in chronic kidney disease; Z20.822 Contact with and (suspected) exposure to COVID-19; Z88.5 Allergy status to narcotic agent; Z88.0 Allergy status to penicillin; Z99.2 Dependence on renal dialysis; F17.200 Nicotine dependence, unspecified, uncomplicated
CPT/HCPCS: 36415; 36430; 71045; 80048; 80053; 80061; 80074; 82140; 82803; 84484; 85018; 85025; 85610; 85730; 86850; 86900; 86901; 86920; 93005; 94640; 94644; 94760; G0378; J1100; J1956; J7050; P9016; U0003

== ENCOUNTER 2021-11-10 11:13 | Emergency (ER) | payer MEDICARE ==
[2021-11-10 11:18] VITALS: BP 169/80
--- NOTE | 2021-11-12 11:09 | Electrocardiograph Report ---
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
== END 2021-11-11 09:07 | disposition left against medical advice (07) ==
LOC: ED 11:13
DX: R07.9 Chest pain, unspecified (principal); Z53.21 Procedure and treatment not carried out due to patient leaving prior to being seen by health care provider
CPT/HCPCS: 93005